=== PATIENT | male | born 1990 | race Caucasian/White ===

== ENCOUNTER → 2018-03-19 | Outpatient (CLI) | payer MEDICAID ==
[~2018-03-19] MED LIST: ALBU8.5H5 INH; BUDE10.2 INH; PRED10TA PO
== END | disposition home or self-care (01) ==
LOC: CFH 12:29
PROVIDERS: ATTEND Registered Nurse
DX: J45.40 Moderate persistent asthma, uncomplicated (principal); N62 Hypertrophy of breast
CPT/HCPCS: 71250